=== PATIENT | male | born 1980 | race Two or more races ===

== ENCOUNTER → 2019-05-12 | Outpatient (REF) | payer OTHER | LOC: M SFHCLERA 16:41 | PROVIDERS: ATTEND Nurse Practitioner Family | DX: R50.9 Fever, unspecified (principal) ==

== ENCOUNTER → 2021-12-01 | Outpatient (REF) | LOC: M PLAIMG 10:11 | PROVIDERS: ATTEND Internal Medicine | DX: R06.02 Shortness of breath (principal) ==